=== PATIENT | female | born 1970 | race Caucasian/White ===

== ENCOUNTER 2018-09-07 07:07 | Day surgery (SDC) | payer OTHER ==
[~2018-09-07] VITALS: Ht 152.4 cm; Wt 93.6 kg
[2018-09-07 08:09] VITALS: BP 115/70; PULSE 75; RESP 12
[2018-09-07 08:22] VITALS: Ht 152.4 cm; Wt 93.6 kg
--- NOTE | 2018-09-07 08:31 | PREAC ---
Date/Time of Note Date/Time of Note DATE: 09/07/18 TIME: 08:29 Anesthesia Eval and Record Evaluation Time Pre-Procedure Interview DATE: 09/07/18 TIME: 08:29 Age 48 Sex female NPO: 8 hrs Preoperative diagnosis Reflux esophagitis, positive occult blood in stool Planned procedure EGD, colonoscopy Past Medical History Past Medical History: Includes Cardio: HTN GI: Morbid obesity Surgery & Anesthesia Issues No known issue Meds Anticoagulation: No Beta Leopoldo within 24 hr: No Reason Beta Leopoldo not given: Pt. not on B-Leopoldo Meds reviewed: Yes Allergies Allergies Reviewed: Yes Labs/Studies Labs Reviewed: Reviewed by anesthesiologist test: N/A (BTL) Pre-procedure Exam Last vitals Vital Signs Date Temp Pulse Resp B/P (MAP) Pulse Ox O2 O2 Flow FiO2 Time Delivery Rate 09/07/18 98.1 75 12 115/70 94 Room Air 08:09 (85) Airway: Adequate mouth opening Mallampati: Mallampati II Teeth: Normal Lung: Normal Heart: Normal ASA Physical Status ASA physical status: 3 Emergency: None Planned Anesthetic General/MAC: MAC Planned Pain Management Parenteral pain med Pre-operative Attestations Prior to commencing anesthesia and surgery, the patient was re-evaluated, there was verification of: *The patient's identity *The results of appropriate recent lab work and preoperative vital signs *The above evaluation not changing prior to induction *Anesthetic plan, risk benefits, alternative and complications discussed with patient/family; questions answered; patient/family understands, accepts and wishes to proceed. MAURA NEAL MD Sep 07, 2018 08:31
[2018-09-07] MEDS ORDERED: baclofen (08:34)
[2018-09-07] MEDS ORDERED: lisinopril PO (08:34)
[2018-09-07] MEDS ORDERED: ASPI-903 PO (08:34)
[2018-09-07] MEDS ORDERED: FENTAnyl 50 MCG/ML VIAL IV PRN ×3 (09:00)
[2018-09-07] MEDS ORDERED: MEPERIDINE 25 MG INJ IV PRN (09:00)
[2018-09-07] MEDS ORDERED: METOCLOPRAMIDE 10 MG INJ IV PRN (09:00)
[2018-09-07] MEDS ORDERED: OXYCODONE/ACETAMINOPHEN (5/325) TAB PO PRN ×2 (09:00)
[2018-09-07] MEDS ORDERED: hydrALAzine 20 MG INJ IV PRN (09:00)
[2018-09-07] MEDS ORDERED: MIDAZOLAM 1 MG/ML 2 ML INJ IV PRN (09:00)
[2018-09-07] MEDS ORDERED: LABETALOL HCL 20MG INJ IV PRN (09:00)
[2018-09-07] MEDS ORDERED: DIPHENHYDRAMINE 50 MG INJ IV PRN (09:00)
[2018-09-07] MEDS ORDERED: EPHEDrine SULFATE 50 MG/5 ML SYG IV PRN (09:00)
[2018-09-07] MEDS ORDERED: ONDANSETRON 4 MG INJ IV PRN (09:00)
[2018-09-07] MEDS ORDERED: PROPOFOL 20 ML ONE ×2 (09:17)
[2018-09-07 09:48] VITALS: BP 113/59; PULSE 72; RESP 12
--- NOTE | 2018-09-07 10:25 | PAC ---
Date/Time of Note Date/Time of Note DATE: 09/07/18 TIME: 10:25 Post-Anesthesia Notes Post-Anesthesia Note Last documented vital signs Vital Signs Date Temp Pulse Resp B/P (MAP) Pulse Ox O2 O2 Flow FiO2 Time Delivery Rate 09/07/18 98.4 72 12 113/59 97 Room Air 09:48 (77) Activity: WNL Respiratory function: WNL Cardiovascular function: WNL Mental status: Baseline Pain reasonably controlled: Yes Hydration appropriate: Yes Nausea/Vomiting absent: Yes MAURA NEAL MD Sep 07, 2018 10:25
== END 2018-09-07 10:23 | disposition home or self-care (01) ==
LOC: GIL 07:07
PROVIDERS: ATTEND Internal Medicine Gastroenterology
DX: R19.4 Change in bowel habit (principal); K64.8 Other hemorrhoids; D12.3 Benign neoplasm of transverse colon; K21.0 Gastro-esophageal reflux disease with esophagitis; K29.60 Other gastritis without bleeding; I10 Essential (primary) hypertension
CPT/HCPCS: 43239; 45380; 88305; 88312; Z7610